=== PATIENT | female | born 1945 | race Asian ===

== ENCOUNTER 2018-09-08 18:14 | Inpatient (IN) | END 2018-09-10 11:46 | disposition home or self-care (01) | DRG 871 ==

== ENCOUNTER 2018-09-24 13:17 | Inpatient (IN) | END 2018-09-26 20:20 | disposition home health service (06) | DRG 180 ==

== ENCOUNTER 2018-10-18 14:59 | Emergency (ER) | END 2018-10-18 17:22 | disposition home or self-care (01) ==

== ENCOUNTER 2019-02-14 16:37 | Inpatient (IN) | payer OTHER ==
[~2019-02-14] VITALS: Ht 147.3 cm; Wt 39.7 kg
[~2019-02-14 16:37] MED LIST: ACET1TAB40 PO; ALBU18HF INHALATION; ALBU2.5V3 NEB; AMLO5TAB4 PO; BENZ-5 PO; CHOL100062 PO; CYAN500T46 PO; FAMO-96 PO; FOLI-49 PO; GUAI120L41 PO; LOSA50TA14 PO; NEBU1KIT3 MC; NYST1000 PO; PRED20TA PO; SIMV20TA PO
[2019-02-14] MEDS ORDERED: morphine 4 MG/ML VIAL IV STA (21:11)
[2019-02-14] MEDS ORDERED: ONDANSETRON 4 MG INJ IV STA (21:11)
[2019-02-14] MEDS ORDERED: SOD CHLORIDE 0.9% 1,000 ML IV STA (21:11)
--- NOTE | 2019-02-14 21:13 | ERD ---
ER Documentation Chief Complaint Chief Complaint pain burning/ frequency on urination x 2 weeks HPI This is a 73-year-old female complaining of 2 days of hematuria with blood clots with dysuria and frequency. Patient has lung cancer and is undergoing radiation therapy. She has occasional bilateral flank pain but no fevers. She is having a hard time getting the urine out at times due to blood clots. No nausea vomiting or diarrhea ROS All systems reviewed and are negative except as per history of present illness. Medications Home Meds Active Scripts Losartan Potassium* (Losartan Potassium*) 50 Mg Tablet, 50 MG PO DAILY, #30 TAB Prov:MADELYN PERES MD 10/18/18 Nystatin (Nystatin) 100,000 Unit/1 Ml Oral.susp, 5 ML PO QID for 7 Days, OZ Swish and swallow Prov:MADELYN PERES MD 10/18/18 Famotidine* (Pepcid*) 20 Mg Tablet, 20 MG PO BID for 10 Days, TAB Prov:MADELYN PERES MD 10/18/18 Acetaminophen with Codeine (Acetaminophen-Cod #3 Tablet) 1 Each Tablet, 1 TAB PO Q6H PRN for PAIN, #12 TAB Prov:MADELYN PERES MD 10/18/18 Albuterol Sulfate* (Ventolin HFA*) 18 Gm Hfa.aer.ad, 2 PUFF INHALATION Q4H, #1 INHALER Prov:ANN JACOBSEN MD 09/26/18 Albuterol Sulfate* (Albuterol Sulfate* Neb) 0.083%-3 Ml Neb, 2.5 MG NEB Q4H PRN for SHORTNESS OF BREATH, #30 VIAL 4 Refills Prov:ANN JACOBSEN MD 09/26/18 Nebulizer (Compact Compressor Nebulizer) 1 Each Each, EACH , #1 Prov:ANN JACOBSEN MD 09/26/18 Guaifenesin/Codeine Phosphate (Codeine-Guaifen 10-100 mg/5 ml) 120 Ml Liquid, 5 ML PO Q4H PRN for COUGH, #1 BOT Prov:ANN JACOBSEN MD 09/26/18 Prednisone* (Prednisone*) 20 Mg Tab, 40 MG PO DAILY, #10 TAB Prov:ANN JACOBSEN MD 09/26/18 Benzonatate* (Benzonatate*) 100 Mg Capsule, 100 MG PO TID for 10 Days, #30 CAP Prov:ANN JACOBSEN MD 09/26/18 Reported Medications Cyanocobalamin* (Vitamin B12*) Unknown Strength Tab, 1 TAB PO DAILY, TAB 09/08/18 Cholecalciferol* (Vitamin D3*) Unknown Strength Tablet, 1 TAB PO DAILY, TAB 09/08/18 Folic Acid* (Folic Acid*) 1 Mg Tablet, 1 MG PO DAILY, TAB 09/08/18 Losartan Potassium* (Losartan Potassium*) 50 Mg Tablet, 50 MG PO DAILY, TAB 09/08/18 Amlodipine Besylate* (Norvasc*) 5 Mg Tablet, 5 MG PO DAILY, TAB 09/08/18 Simvastatin* (Zocor*) 20 Mg Tablet, 20 MG PO QHS, #30 TAB 09/08/18 Allergies Allergies: Coded Allergies: No Known Allergy (Unverified , 02/14/19) PMhx/Soc History of Surgery: Yes (Hemoroidectomy) Anesthesia Reaction: No Hx Neurological Disorder: No Hx Respiratory Disorders: Yes (NSCLC) Hx Cardiac Disorders: Yes (HTN, high cholesterol) Hx Psychiatric Problems: No Hx Miscellaneous Medical Probl: No Hx Alcohol Use: No Hx Substance Use: No Hx Tobacco Use: No Smoking Status: Never smoker FmHx Family History: No coronary disease Physical Exam Vitals Vital Signs Date Temp Pulse Resp B/P (MAP) Pulse Ox O2 O2 Flow FiO2 Time Delivery Rate 02/15/19 122 20 110/78 97 Room Air 02:01 (89) 02/14/19 99.0 142 26 130/80 96 Room Air 23:35 (97) 02/14/19 99.0 119 20 120/76 98 Room Air 20:54 (91) 02/14/19 98.7 110 20 141/74 97 16:46 (96) Physical Exam Const: Well-developed, well-nourished Head: Atraumatic, normocephalic Eyes: Normal Conjunctiva, PERRLA, EOMI, normal sclera, no nystagmus ENT: Normal External Ears, Nose and Mouth, moist mucus membranes. Neck: Full range of motion. No meningismus, no lymphadenopathy. Resp: Clear to auscultation bilaterally, no wheezing, rhonchi, rales Cardio: Regular rate and rhythm, no murmurs, S1 S2 present Abd: Soft, non tender x 4, non distended. Normal bowel sounds, no guard ing or rebound, no pulsitile abdominal masses or bruits Skin: No petechiae or rashes, no ecchymosis , no maculopapular rash Back: No midline or flank tenderness Ext: No cyanosis, or edema, FROM x 4, normal inspection, neurovascularly intact x 4 Neur: Awake and alert, STR 5/5 x 4, sensation intact x 4, no focal findings, cerebellum intact Psych: Normal Mood and Affect Result Diagram: 02/14/19212402/14/192124 Results 24 hrs Laboratory Tests Test 02/14/19 21:11 02/14/19 21:25 Urine Color ANNA MARIE Urine Clarity CLOUDY Urine pH 7.0 Urine Specific Kohler 1.015 Urine Ketones TRACE mg/dL Urine Nitrite NEGATIVE mg/dL Urine Bilirubin NEGATIVE mg/dL Urine Urobilinogen NEGATIVE mg/dL Urine Leukocyte Esterase NEGATIVE Emeli/ul Urine Microscopic RBC > 182 /HPF Urine Microscopic WBC 55 /HPF Urine Hemoglobin 3+ mg/dL Urine Glucose 1+ mg/dL Urine Total Protein 3+ mg/dl White Blood Count 11.3 10^3/ul Red Blood Count 3.58 10^6/ul Hemoglobin 9.7 g/dl Hematocrit 30.7 % Mean Corpuscular Volume 85.8 fl Mean Corpuscular Hemoglobin 27.1 pg Mean Corpuscular Hemoglobin Concent 31.6 g/dl Red Cell Distribution Width 14.4 % Platelet Count 394 10^3/UL Mean Platelet Volume 8.9 fl Immature Granulocytes % 0.400 % Neutrophils % 90.5 % Lymphocytes % 4.3 % Monocytes % 4.3 % Eosinophils % 0.1 % Basophils % 0.4 % Nucleated Red Blood Cells % 0.0 /100WBC Immature Granulocytes # 0.050 10^3/ul Neutrophils # 10.2 10^3/ul Lymphocytes # 0.5 10^3/ul Monocytes # 0.5 10^3/ul Eosinophils # 0.0 10^3/ul Basophils # 0.1 10^3/ul Nucleated Red Blood Cells # 0.0 10^3/ul Prothrombin Time 12.0 Sec Prothrombin Time Ratio 0.9 INR International Normalized Ratio 0.88 Activated Partial Thromboplast Time 31.4 Sec Sodium Level 137 mmol/L Potassium Level 4.3 mmol/L Chloride Level 97 mmol/L Carbon Dioxide Level 29 mmol/L Anion Gap 11 Blood Urea Nitrogen 17 mg/dl Creatinine 1.11 mg/dl Est Glomerular Filtrat Rate mL/min mL/min Glucose Level 117 mg/dl Calcium Level 10.4 mg/dl Total Bilirubin 0.3 mg/dl Direct Bilirubin 0.00 mg/dl Indirect Bilirubin 0.3 mg/dl Aspartate Amino Transf (AST/SGOT) 83 IU/L Alanine Aminotransferase (ALT/SGPT) 12 IU/L Alkaline Phosphatase 69 IU/L Total Protein 8.6 g/dl Albumin 4.5 g/dl Globulin 4.10 g/dl Albumin/Globulin Ratio 1.09 Current Medications Medications Dose Sig/Kourtney Start Time Status Last (Trade) Ordered Route PRN Stop Time Admin Dose Reason Admin Sodium 1,000 ml @ Q1H STAT 02/14/19 DC 02/14/19 Chloride 1,000 mls/hr IV 21:11 21:23 02/14/19 22:10 Morphine 4 mg ONCE STAT 02/14/19 DC 02/14/19 Sulfate IV 21:11 21:22 (morphine) 02/14/19 21:13 Ondansetron 4 mg ONCE STAT 02/14/19 DC 02/14/19 HCl (Zofran IV 21:11 21:21 Inj) 02/14/19 21:13 IV Flush 10 ml STK-MED 02/14/19 DC 02/14/19 (NS 10 ml) ONCE .ROUTE 22:35 22:51 02/14/19 22:36 Sodium 100 ml @ ud STK-MED 02/14/19 DC 02/14/19 Chloride ONCE .ROUTE 22:35 22:51 02/14/19 22:36 Iohexol 150 ml STK-MED 02/14/19 DC 02/14/19 (Omnipaque ONCE .ROUTE 22:35 22:52 300mg/ ml) 02/14/19 22:36 Lorazepam 1 mg ONCE ONCE 02/14/19 DC 02/14/19 (Ativan) IV 23:30 23:25 02/14/19 23:31 Cefepime HCl 50 ml @ ONCE ONCE 02/15/19 DC 02/15/19 100 mls/hr IVPB 01:30 01:59 02/15/19 01:59 Procedures/MDM DIAGNOSTIC IMAGING REPORT Patient: BARBARA NAVARRO : 1945 Age: 73 Sex: F MR #: [id number] [facility] #: [id number] DOS: 02/14/192110 Ordering MD: TIAN WHITTEN DO Location: E/R Room/Bed: PROCEDURE: CT ABDOMEN/PELVIS WITH CONTRAST CLINICAL INDICATION: 73-year-old female with abdominal pain and urinary r etention. TECHNIQUE: The study was performed utilizing a GE [employer] VCT 64-slice CT scanner. Direct axial sections were obtained through the abdomen and pelvis with the use of 90 cc of Omnipaque-300 nonionic intravenous contrast material. Sagittal and coronal reformations were obtained. One or more of the following dose reduction techniques were utilized: automated exposure control, adjustment of the mA and/or kV according to patient's size and/or use of iterative reconstruction technique. DICOM images are available. The images were reviewed on a PACS workstation. CTD/vol = 3.93 mGy; Total Exam DLP = 192.27 mGy.cm. COMPARISON: CTA chest September 24, 2018. FINDINGS: On the first axial section there is a ovoid pulmonary nodule within the right lower lobe on axial image 3-1 measuring approximately 6 mm not completely scanned through this was not visualized on the patient's prior CT of the chest from August 2018. There is no evidence for significant pleural effusion. The liver has a normal size and contour. There is an ovoid cystic focus within the right lobe of the liver extending to the periphery on axial image 3-28 measuring 1.2 x 1.0 x 1.1 cm. There is an additional cystic focus within the lateral segment of the left lobe of the liver on axial image 3-29 measuring approximately 10 x 80 x 10 mm. These were identified previously. No intrahepatic nor extrahepatic biliary ductal dilatation is seen. The gallbladder demonstrates no wall thickening nor pericholecystic fluid. No biliary stones are evident. The pancreas is without areas of abnormal attenuation or contrast enhancement. This spleen is identified and has a normal size without abnormal density or contrast enhancement. The adrenal glands are unremarkable. There has been interval marked increase in size of a large right hepatic mass measuring approximately 9.0 x 6.9 x 5.6 cm which encompasses most of the right kidney with extension medially measuring approximately 6.4 x 3.8 x 4.3 cm surrounding and markedly narrowing the inferior vena cava and right renal vein. There is adjacent retroperitoneal adenopathy with the largest node measuring approximately 5.3 x 2.1 x 2.6 cm on axial image 3-54. There is right-sided hydronephrosis with soft tissue identified within the distal ureter extending to the ureterovesical junction. There is soft tissue mass within the right side of the bladder measuring 1.8 x 1.8 x 3.5 cm. The left kidney is functional without evidence for obstructive uropathy. There is an ovoid hypodense mass within the medial aspect of the lower pole of the left kidney measuring approximately 1.2 x 1.4 x 1.4 cm on axial image 3-62 which has fat components with Hounsfield unit of -40 consistent with a renal angiomyolipoma. The stomach has a J-shaped appearance and is mildly distended. There is retained stool within the ascending, transverse and descending colon without evidence for traction. The periappendiceal region is without inflammatory changes. The uterus is diminutive. The right ovarian vein appears to be engorged. There is prominence of the periuterine venous plexus bilaterally but more pronounced on the right side. There is no significant pelvic free fluid. The aortoiliac vessels are mildly calcified but without aneurysmal dilatation. Mild degenerative changes are seen within the lower lumbar spine. IMPRESSION: 1. Right lower lobe 6 mm pulmonary nodule partially scanned through. 2. Large right renal mass encompassing most of the right kidney which has markedly increased in the interval with medial extension and adjacent retroperitoneal adenopathy encircling and markedly narrowing the adjacent vascular structures (inferior vena cava, renal vein). 3. Right-sided hydronephrosis abnormal soft tissue distal right ureter with extension to a right-sided bladder mass. 4. Left renal angiomyolipoma. 5. Hepatic cysts. 6. Retained stool within the proximal colon without evidence for bowel obstruction. 7. Vascular calcifications. 8. Degenerative changes lower lumbar spine. .Nathanael Barraza MD, Date Time Electronically viewed and signed by .Nathanael Barraza MD, MD on 02/15/2019 01:54 .M/ CC: TIAN WHITTEN DO [id number] The patient had a Ayala catheter placed with bright red blood return. The pat ient then underwent a Mccormick drip which did improve the gross hematuria but not completely resolved. The patient then wanted the Ayala catheter removed. We remove the catheter and she went to urinate and she urinated again gross hematuria with some blood clots, she is not wanting the catheter back and at this time. Patient has extensive involvement of the kidney from the tumor and will need to be admitted for stabilization and urology consult. Paged Dr. Rodriguez Departure Diagnosis: Primary Impression: Gross hematuria Additional Impression: Renal malignant tumor Laterality: right Qualified Codes: C64.1 - Malignant neoplasm of right kidney, except renal pelvis Condition: Stable TIAN WHITTEN DO Feb 14, 2019 21:13
[2019-02-14] MEDS ORDERED: SOD CHLORIDE 0.9% 100 ML ONE (22:35)
[2019-02-14] MEDS ORDERED: IOHEXOL 300MG/ML 150 ML BTL ONE (22:35)
[2019-02-14] MEDS ORDERED: LORAZEPAM 2 MG INJ IV ONE (23:30)
[2019-02-15] MEDS ORDERED: CEFEPIME 1GM/50 ML (PMX) 50 ML IVPB ONE (01:30)
[2019-02-15] MEDS ORDERED: NACL 0.9% 3 ML SYG IV SCH (04:00)
[2019-02-15] MEDS ORDERED: PROVENTIL HFA 6.7GM INHALER INH PRN (04:00)
[2019-02-15] MEDS ORDERED: ACETAMINOPHEN/CODEINE #3 TAB PO PRN (04:00)
[2019-02-15] MEDS ORDERED: ACETAMINOPHEN 325 MG TAB PO PRN ×2 (04:00)
[2019-02-15] MEDS ORDERED: DOCUSATE SODIUM 100 MG CAP PO PRN (04:00)
[2019-02-15] MEDS ORDERED: ONDANSETRON 4 MG TAB PO PRN (04:00)
[2019-02-15] MEDS ORDERED: ALBUTEROL HFA 8 GM INHALER INH PRN (04:00)
[2019-02-15] MEDS ORDERED: ONDANSETRON 4 MG INJ IV PRN (04:00)
[2019-02-15] MEDS ORDERED: ALBUTEROL 0.083% (NEB) 2.5 MG/3 ML AMP NEB PRN (04:00)
[2019-02-15] MEDS: LOSARTAN 50 MG TAB PO SCH (08:11)
[2019-02-15] MEDS: AMLODIPINE 5 MG TAB PO SCH (08:12)
[2019-02-15] MEDS ORDERED: FAMOTIDINE 20 MG TAB PO SCH (09:00)
[2019-02-15] MEDS: FAMOTIDINE 20 MG TAB PO SCH (10:05)
[2019-02-15] MEDS ORDERED: HYDROCODONE/APAP (5/325) TAB PO PRN (11:00)
[2019-02-15] MEDS: SOD CHLORIDE 0.9% 1,000 ML IV SCH ×2 (11:07→19:33)
[2019-02-15] MEDS: BENZONATATE 100 MG CAP PO SCH ×3 (11:07→21:21)
[2019-02-15] MEDS: NYSTATIN SUSP 5 ML CUP PO SCH ×4 (11:07→21:21)
[2019-02-15] MEDS: FOLIC ACID 1 MG TAB PO SCH (11:08)
[2019-02-15 12:22] VITALS: PULSE 96
[2019-02-15 12:24] VITALS: BP 101/65; PULSE 93; RESP 18
[2019-02-15 12:44] VITALS: Ht 147.3 cm; Wt 39.7 kg
--- NOTE | 2019-02-15 14:46 | CONS ---
Assessment/Plan Assessment/Plan Hospital Course (Demo Recall) 73-year-old female known to have a history of lung cancer for the past 4 years and has been undergoing treatment with radiation and chemotherapy presented to [facility] with a 2-day history of gross hematuria She underwent a CT scan of the abdomen and pelvis and that was showed: 1. Right lower lobe 6 mm pulmonary nodule partially scanned through. 2. Large right renal mass encompassing most of the right kidney which has markedly increased in the interval with medial extension and adjacent retroperitoneal adenopathy encircling and markedly narrowing the adjacent vascular structures (inferior vena cava, renal vein). 3. Right-sided hydronephrosis abnormal soft tissue distal right ureter with extension to a right-sided bladder mass. 4. Left renal angiomyolipoma. 5. Hepatic cysts. 6. Retained stool within the proximal colon without evidence for bowel o bstruction. 7. Vascular calcifications. 8. Degenerative changes lower lumbar spine. Therefore a urological consultation was requested I saw the patient and her son and [id number] were at her bedside. The patient had recent PET scan and that showed the tumor in the right kidney. Patient has lost a lot of weight and is very cachectic. The family is unclear whether she did have a biopsy of her lung tumor. And whether the tumor was a primary lung tumor or metastatic tumor. Impression: Right renal tumor that is involving all of the kidney and bleeding into the renal pelvis and the blood goes down the ureter to the bladder. Whether this tumor is a metastatic tumor from the lung cancer or is at another primary or is it the primary and the lung tumor is metastatic from it is unknown . The tumor does press on the renal vein and the vena cava. If any surgery is to be considered she will need referral to a tertiary hospital. However I would recommend that the oncologist and the radiation therapist who is taking care of her be consulted. We shall monitor her H&H and transfuse her as needed. I will discussed with the radiologist if embolizing the kidney could offer her any hel p. Consultation Date/Type/Reason Admit Date/Time Feb 15, 2019 at 03:39 Date of Consultation: Feb 15, 2019 Type of Consult Urology Reason for Consultation Gross hematuria and right renal tumor. Requesting Provider: KEVEN SAHA M.D. Date/Time of Note DATE: 02/15/19 TIME: 14:23 Hx of Present Illness 73-year-old female known to have a history of lung cancer for the past 4 years and has been undergoing treatment with radiation and chemotherapy presented to [facility] with a 2-day history of gross hematuria She underwent a CT scan of the abdomen and pelvis and that was showed: 1. Right lower lobe 6 mm pulmonary nodule partially scanned through. 2. Large right renal mass encompassing most of the right kidney which has markedly increased in the interval with medial extension and adjacent retrop eritoneal adenopathy encircling and markedly narrowing the adjacent vascular structures (inferior vena cava, renal vein). 3. Right-sided hydronephrosis abnormal soft tissue distal right ureter with e xtension to a right-sided bladder mass. 4. Left renal angiomyolipoma. 5. Hepatic cysts. 6. Retained stool within the proximal colon without evidence for bowel obstruction. 7. Vascular calcifications. 8. Degenerative changes lower lumbar spine. Therefore a urological consultation was requested I saw the patient and her son and [id number] were at her bedside. The patient had recent PET scan and that showed the tumor in the right kidney. Patient has lost a lot of weight and is very cachectic. The family is unclear whether she did have a biopsy of her lung tumor. And whether the tumor was a primary lung tumor or metastatic tumor. Constitutional: other (Generalized weakness) Eyes: no complaints ENT: no complaints Respiratory: No shortness of breath Cardiovascular: no complaints; No chest pain Gastrointestinal: constipation Genitourinary: hematuria Musculoskeletal: no complaints Skin: no complaints Neurologic: no complaints Endocrine: no complaints Lymphatic: no complaints Psychological: no complaints Immunologic: no complaints Past Medical History Medical History: cancer (Lung), hypertension Home Meds Active Scripts Losartan Potassium* (Losartan Potassium*) 50 Mg Tablet, 50 MG PO DAILY, #30 TAB Prov:MADELYN PERES MD 10/18/18 Nystatin (Nystatin) 100,000 Unit/1 Ml Oral.susp, 5 ML PO QID for 7 Days, OZ Swish and swallow Prov:MADELYN PERES MD 10/18/18 Famotidine* (Pepcid*) 20 Mg Tablet, 20 MG PO BID for 10 Days, TAB Prov:MADELYN PERES MD 10/18/18 Acetaminophen with Codeine (Acetaminophen-Cod #3 Tablet) 1 Each Tablet, 1 TAB PO Q6H PRN for PAIN, #12 TAB Prov:MADELYN PERES MD 10/18/18 Albuterol Sulfate* (Ventolin HFA*) 18 Gm Hfa.aer.ad, 2 PUFF INHALATION Q4H, #1 INHALER Prov:ANN JACOBSEN MD 09/26/18 Albuterol Sulfate* (Albuterol Sulfate* Neb) 0.083%-3 Ml Neb, 2.5 MG NEB Q4H PRN for SHORTNESS OF BREATH, #30 VIAL 4 Refills Prov:ANN JACOBSEN MD 09/26/18 Nebulizer (Compact Compressor Nebulizer) 1 Each Each, EACH MC, #1 Prov:ANN JACOBSEN MD 09/26/18 Guaifenesin/Codeine Phosphate (Codeine-Guaifen 10-100 mg/5 ml) 120 Ml Liquid, 5 ML PO Q4H PRN for COUGH, #1 BOT Prov:ANN JACOBSEN MD 09/26/18 Prednisone* (Prednisone*) 20 Mg Tab, 40 MG PO DAILY, #10 TAB Prov:ANN JACOBSEN MD 09/26/18 Benzonatate* (Benzonatate*) 100 Mg Capsule, 100 MG PO TID for 10 Days, #30 CAP Prov:ANN JACOBSEN MD 09/26/18 Reported Medications Cyanocobalamin* (Vitamin B12*) Unknown Strength Tab, 1 TAB PO DAILY, TAB 09/08/18 Cholecalciferol* (Vitamin D3*) Unknown Strength Tablet, 1 TAB PO DAILY, TAB 09/08/18 Folic Acid* (Folic Acid*) 1 Mg Tablet, 1 MG PO DAILY, TAB 09/08/18 Losartan Potassium* (Losartan Potassium*) 50 Mg Tablet, 50 MG PO DAILY, TAB 09/08/18 Amlodipine Besylate* (Norvasc*) 5 Mg Tablet, 5 MG PO DAILY, TAB 09/08/18 Simvastatin* (Zocor*) 20 Mg Tablet, 20 MG PO QHS, #30 TAB 09/08/18 Medications Current Medications Ondansetron HCl (Zofran Inj) 4 mg BRIDGE ORDER PRN IV NAUSEA/VOMITING; Start 02/15/19 at 04:00; Stop 02/16/19 at 03:59 Acetaminophen (Tylenol Tab) 650 mg ER BRIDGE PRN PO .MILD PAIN 1-3 OR TEMP; Start 02/15/19 at 04:00; Stop 02/16/19 at 03:59 Albuterol (Proventil 0.083% (Neb)) 2.5 mg Q4H PRN NEB SHORTNESS OF BREATH; Start 02/15/19 at 04:00 Amlodipine Besylate (Norvasc) 5 mg DAILY PO ; Start 02/15/19 at 09:00 Benzonatate (Tessalon) 100 mg TID PO Last administered on 02/15/19at 11:07; Admin Dose 100 MG; Start 02/15/19 at 09:00 Folic Acid (Folic Acid) 1 mg DAILY PO Last administered on 02/15/19 11:08; Admin Dose 1 MG; Start 02/15/19 at 09:00 Losartan Potassium (Cozaar) 50 mg DAILY PO ; Start 02/15/19 at 09:00 Nystatin (Nystatin Susp) 5 ml QID PO Last administered on 02/15/19 11:07; Admin Dose 5 ML; Start 02/15/19 at 09:00 IV Flush (NS 3 ml) 3 ml PER PROTOCOL IV ; Start 02/15/19 at 04:00 Ondansetron HCl (Zofran Tab) 4 mg Q6H PRN PO NAUSEA/VOMITING; Start 02/15/19 at 04:00 Acetaminophen (Tylenol Tab) 650 mg Q6H PRN PO .PAIN 1-3 OR TEMP; Start 02/15/19 at 04:00 Docusate Sodium (Colace) 100 mg Q12H PRN PO .CONSTIPATION; Start 02/15/19 at 04:00 Albuterol (Ventolin Hfa) 2 puff Q4H PRN INH Dyspnea; Start 02/15/19 at 04:00 Acetaminophen/ Hydrocodone Bitart ([place] (5/325)) 1 tab Q6H PRN PO MODERATE PAIN LEVEL 4-6; Start 02/15/19 at 11:00 Famotidine (Pepcid) 20 mg DAILY PO Last administered on 02/15/19at 10:05; Admin Dose 20 MG; Start 02/15/19 at 09:00 Sodium Chloride 1,000 ml @ 125 mls/hr Q8H IV Last administered on 02/15/19 11:07; Admin Dose 125 MLS/HR; Start 02/15/19 at 09:40 Allergies: Coded Allergies: No Known Allergy (Unverified , 02/14/19) Past Surgical History Past Surgical Hx: no surgical history Social History Alcohol Use: none Smoking Status: Never smoker Drug Use: none Other Social History She is a 3, para 3, 3 normal deliveries Exam/Review of Systems Exam Vitals Vital Signs Date Temp Pulse Resp B/P (MAP) Pulse Ox O2 O2 Flow FiO2 Time Delivery Rate 02/15/19 97.5 93 18 101/65 99 Room Air 12:24 (77) Intake and Output 02/14/19 02/14/19 02/15/19 1515:00 23:00 07:00 IntakeIntake Total 1000 ml 50 ml BalanceBalance 1000 ml 50 ml Constitutional: alert, frail Psych: no complaints Head: normocephalic Eyes: nl conjunctiva ENMT: nl external ears & nose Neck: supple Respiratory: normal air movement; No wheezing Cardiovascular: No jugular venous distention (JVD) Gastrointestinal: soft, other (No mass palpable and no tenderness) Genitourinary - Female: other (She did have a Ayala catheter which was removed because it got clogged from the blood clots. She has voided after that and the urine is bloody) Musculoskeletal: nl extremities to inspection Extremities: No calf tenderness Neurological: nl mental status Skin: nl turgor Results Result Diagram: 02/14/19212402/14/192124 Results 24hrs Laboratory Tests Test 02/14/19 21:11 02/14/19 21:25 Urine Color ANNA MARIE Urine Clarity CLOUDY A Urine pH 7.0 Urine Specific [place] 1.015 Urine Ketones TRACE A Urine Nitrite NEGATIVE Urine Bilirubin NEGATIVE Urine Urobilinogen NEGATIVE Urine Leukocyte Esterase NEGATIVE Urine Microscopic RBC > 182 H Urine Microscopic WBC 55 H Urine Hemoglobin 3+ H Urine Glucose 1+ H Urine Total Protein 3+ H White Blood Count 11.3 #H Red Blood Count 3.58 L Hemoglobin 9.7 L Hematocrit 30.7 L Mean Corpuscular Volume 85.8 Mean Corpuscular Hemoglobin 27.1 L Mean Corpuscular Hemoglobin Concent 31.6 L Red Cell Distribution Width 14.4 Platelet Count 394 # Mean Platelet Volume 8.9 Immature Granulocytes % 0.400 Neutrophils % 90.5 H Lymphocytes % 4.3 L Monocytes % 4.3 Eosinophils % 0.1 Basophils % 0.4 Nucleated Red Blood Cells % 0.0 Immature Granulocytes # 0.050 H Neutrophils # 10.2 H Lymphocytes # 0.5 L Monocytes # 0.5 Eosinophils # 0.0 Basophils # 0.1 Nucleated Red Blood Cells # 0.0 Prothrombin Time 12.0 Prothrombin Time Ratio 0.9 INR International Normalized Ratio 0.88 Activated Partial Thromboplast Time 31.4 Sodium Level 137 Potassium Level 4.3 Chloride Level 97 Carbon Dioxide Level 29 Anion Gap 11 Blood Urea Nitrogen 17 Creatinine 1.11 H Est Glomerular Filtrat Rate mL/min Glucose Level 117 Calcium Level 10.4 H Total Bilirubin 0.3 Direct Bilirubin 0.00 Indirect Bilirubin 0.3 Aspartate Amino Transf (AST/SGOT) 83 H Alanine Aminotransferase (ALT/SGPT) 12 L Alkaline Phosphatase 69 Total Protein 8.6 H Albumin 4.5 Globulin 4.10 H Albumin/Globulin Ratio 1.[address] scan of the abdomen and pelvis: 1. Right lower lobe 6 mm pulmonary nodule partially scanned through. 2. Large right renal mass encompassing most of the right kidney which has markedly increased in the interval with medial extension and adjacent retroperitoneal adenopathy encircling and markedly narrowing the adjacent vascular structures (inferior vena cava, renal vein). 3. Right-sided hydronephrosis abnormal soft tissue distal right ureter with extension to a right-sided bladder mass. 4. Left renal angiomyolipoma. 5. Hepatic cysts. 6. Retained stool within the proximal colon without evidence for bowel obstruction. 7. Vascular calcifications. 8. Degenerative changes lower lumbar spine. Medications Medication Current Medications Ondansetron HCl (Zofran Inj) 4 mg BRIDGE ORDER PRN IV NAUSEA/VOMITING; Start 02/15/19 at 04:00; Stop 02/16/19 at 03:59 Acetaminophen (Tylenol Tab) 650 mg ER BRIDGE PRN PO .MILD PAIN 1-3 OR TEMP; Start 02/15/19 at 04:00; Stop 02/16/19 at 03:59 Albuterol (Proventil 0.083% (Neb)) 2.5 mg Q4H PRN NEB SHORTNESS OF BREATH; Start 02/15/19 at 04:00 Amlodipine Besylate (Norvasc) 5 mg DAILY PO ; Start 02/15/19 at 09:00 Benzonatate (Tessalon) 100 mg TID PO Last administered on 02/15/19at 11:07; Admi n Dose 100 MG; Start 02/15/19 at 09:00 Folic Acid (Folic Acid) 1 mg DAILY PO Last administered on 02/15/19at 11:08; Admin Dose 1 MG; Start 02/15/19 at 09:00 Losartan Potassium (Cozaar) 50 mg DAILY PO ; Start 02/15/19 at 09:00 Nystatin (Nystatin Susp) 5 ml QID PO Last administered on 02/15/19at 11:07; Admin Dose 5 ML; Start 02/15/19 at 09:00 IV Flush (NS 3 ml) 3 ml PER PROTOCOL IV ; Start 02/15/19 at 04:00 Ondansetron HCl (Zofran Tab) 4 mg Q6H PRN PO NAUSEA/VOMITING; Start 02/15/19 at 04:00 Acetaminophen (Tylenol Tab) 650 mg Q6H PRN PO .PAIN 1-3 OR TEMP; Start 02/15/19 at 04:00 Docusate Sodium (Colace) 100 mg Q12H PRN PO .CONSTIPATION; Start 02/15/19 at 04:00 Albuterol (Ventolin Hfa) 2 puff Q4H PRN INH Dyspnea; Start 02/15/19 at 04:00 Acetaminophen/ Hydrocodone Bitart ([place] (5/325)) 1 tab Q6H PRN PO MODERATE PAIN LEVEL 4-6; Start 02/15/19 at 11:00 Famotidine (Pepcid) 20 mg DAILY PO Last administered on 02/15/19at 10:05; Admin Dose 20 MG; Start 02/15/19 at 09:00 Sodium Chloride 1,000 ml @ 125 mls/hr Q8H IV Last administered on 02/15/19at 11:07; Admin Dose 125 MLS/HR; Start 02/15/19 at 09:40 JANELLE MAY MD Feb 15, 2019 14:36
[2019-02-15 15:40] VITALS: BP 107/60; PULSE 99; RESP 18
[2019-02-15 16:07] VITALS: PULSE 92
--- NOTE | 2019-02-15 17:01 | HP ---
Date/Time of Note Date/Time of Note DATE: 02/15/19 TIME: 16:53 Assessment/Plan VTE Prophylaxis SCD applied (from Nsg): Yes Pharmacological prophylaxis: NA/contraindicated Pharm contraindication: bleeding Lines/Catheters IV Catheter Type (from Nrsg): Peripheral IV Urinary Cath still in place: No Assessment/Plan Hospital Course CT scan of the abdomen and pelvis: 1. Right lower lobe 6 mm pulmonary nodule partially scanned through. 2. Large right renal mass encompassing most of the right kidney which has markedly increased in the interval with medial extension and adjacent retroperitoneal adenopathy encircling and markedly narrowing the adjacent vascular structures (inferior vena cava, renal vein). 3. Right-sided hydronephrosis abnormal soft tissue distal right ureter with extension to a right-sided bladder mass. 4. Left renal angiomyolipoma. 5. Hepatic cysts. 6. Retained stool within the proximal colon without evidence for bowel obstruction. 7. Vascular calcifications. 8. Degenerative changes lower lumbar spine. Assessment/Plan 73yo woman with biopsy-proven diagnosis of non-small cell lung cancer and previous history of alveolar hemorrhage. Now with two days of gross hematuria. CT of the abdomen indicates virtual replacement of the right kidney with tumor. Discussed with Dr. Carlos Portillo (Urology), who speculated about the possibility of this being a renal cell carcinoma that had previously metastasized to the lung versus a second malignancy. She has right hydronephrosis on CT scan, suggesting ureteric obstruction. Creatinine is elevated at 1.11. However BP was low (SBP 85 this morning). No fever, but urine showed heavy E.coli. * I consulted Dr. Portillo this morning. His feeling is that surgical resection would be highly complicated and would need to be performed if indicated in a tertiary care center. * I spoke tonight with Dr. Awa Ashton for Oncology, after being in touch with Dr. Baba Ishaan Salas (the patient's oncologist). She will see Tiffany tomorrow morning in consultation. * I left a phone message for Dr. Aristides Allen, one of our internists, who is the patient's cousin * Hold anticoagulation in light of the active bleeding * Will start her on Zosyn in light of heavy E.coli in her urine and symptomatic urethritis * SCDs for DVT prevention * Famotidine 20mg PO BID for GI protection * Patient is full-code * Disposition: disease staging anticipated by oncologists. Have not extensively discussed options with the family, but prognosis appears grim. Aleida Garibay MD PhD [facility] Internal Medicine [phone] Result Diagram: 02/14/19212402/14/192124 Results 24hrs Laboratory Tests Test 02/14/19 21:11 02/14/19 21:25 Urine Color ANNA MARIE Urine Clarity CLOUDY A Urine pH 7.0 Urine Specific [place] 1.015 Urine Ketones TRACE A Urine Nitrite NEGATIVE Urine Bilirubin NEGATIVE Urine Urobilinogen NEGATIVE Urine Leukocyte Esterase NEGATIVE Urine Microscopic RBC > 182 H Urine Microscopic WBC 55 H Urine Hemoglobin 3+ H Urine Glucose 1+ H Urine Total Protein 3+ H White Blood Count 11.3 #H Red Blood Count 3.58 L Hemoglobin 9.7 L Hematocrit 30.7 L Mean Corpuscular Volume 85.8 Mean Corpuscular Hemoglobin 27.1 L Mean Corpuscular Hemoglobin Concent 31.6 L Red Cell Distribution Width 14.4 Platelet Count 394 # Mean Platelet Volume 8.9 Immature Granulocytes % 0.400 Neutrophils % 90.5 H Lymphocytes % 4.3 L Monocytes % 4.3 Eosinophils % 0.1 Basophils % 0.4 Nucleated Red Blood Cells % 0.0 Immature Granulocytes # 0.050 H Neutrophils # 10.2 H Lymphocytes # 0.5 L Monocytes # 0.5 Eosinophils # 0.0 Basophils # 0.1 Nucleated Red Blood Cells # 0.0 Prothrombin Time 12.0 Prothrombin Time Ratio 0.9 INR International Normalized Ratio 0.88 Activated Partial Thromboplast Time 31.4 Sodium Level 137 Potassium Level 4.3 Chloride Level 97 Carbon Dioxide Level 29 Anion Gap 11 Blood Urea Nitrogen 17 Creatinine 1.11 H Est Glomerular Filtrat Rate mL/min Glucose Level 117 Calcium Level 10.4 H Total Bilirubin 0.3 Direct Bilirubin 0.00 Indirect Bilirubin 0.3 Aspartate Amino Transf (AST/SGOT) 83 H Alanine Aminotransferase (ALT/SGPT) 12 L Alkaline Phosphatase 69 Total Protein 8.6 H Albumin 4.5 Globulin 4.10 H Albumin/Globulin Ratio 1.09 HPI/ROS Admit Date/Time Admit Date/Time Feb 15, 2019 at 03:39 Hx of Present Illness [facility] CC: Blood in the toilet HPI: Ms. Allen is a 73-year-old woman with a 4-1/2-year history of stage IV biopsy-proven non-small cell lung cancer who presented late last night to the [facility] ER with two days of bloody urine. She had no frequency, dysuria or urethritis symptoms, and no lightheadedness, abdominal or back pain. She is followed by Dr. Baba Ishaan Salas and has undergone chemotherapy and radiation previously (10 sessions, concluded in Sep 2018). She was admitted most recently in June 2018 for dyspnea and hemoptysis, attributed to the cancer. A previous admission diagnosed post-obstructive pneumonia. She has been followed by Dr. Jace Mcknight (pulmonary). ROS No nausea, but she had an episode of emesis after the CT scan yesterday that she attributed to chill in the Radiology Department. She has had mild headache that she related to straining at stool due to constipation. No chest pain, dyspnea, or cough. Full 14 point ROS otherwise negative. PMH/Family/Social Past Medical History Medical History: cancer (Lung), hypertension, other (hemorrhoids) Medications Current Medications Ondansetron HCl (Zofran Inj) 4 mg BRIDGE ORDER PRN IV NAUSEA/VOMITING; Start 02/15/19 at 04:00; Stop 02/16/19 at 03:59 Acetaminophen (Tylenol Tab) 650 mg ER BRIDGE PRN PO .MILD PAIN 1-3 OR TEMP; Start 02/15/19 at 04:00; Stop 02/16/19 at 03:59 Albuterol (Proventil 0.083% (Neb)) 2.5 mg Q4H PRN NEB SHORTNESS OF BREATH; Start 02/15/19 at 04:00 Amlodipine Besylate (Norvasc) 5 mg DAILY PO ; Start 02/15/19 at 09:00 Benzonatate (Tessalon) 100 mg TID PO Last administered on 02/15/19at 11:07; Admin Dose 100 MG; Start 02/15/19 at 09:00 Folic Acid (Folic Acid) 1 mg DAILY PO Last administered on 02/15/19at 11:08; Admin Dose 1 MG; Start 02/15/19 at 09:00 Losartan Potassium (Cozaar) 50 mg DAILY PO ; Start 02/15/19 at 09:00 Nystatin (Nystatin Susp) 5 ml QID PO Last administered on 02/15/19at 11:07; Admin Dose 5 ML; Start 02/15/19 at 09:00 IV Flush (NS 3 ml) 3 ml PER PROTOCOL IV ; Start 02/15/19 at 04:00 Ondansetron HCl (Zofran Tab) 4 mg Q6H PRN PO NAUSEA/VOMITING; Start 02/15/19 at 04:00 Acetaminophen (Tylenol Tab) 650 mg Q6H PRN PO .PAIN 1-3 OR TEMP; Start 02/15/19 at 04:00 Docusate Sodium (Colace) 100 mg Q12H PRN PO .CONSTIPATION; Start 02/15/19 at 0 4:00 Albuterol (Ventolin Hfa) 2 puff Q4H PRN INH Dyspnea; Start 02/15/19 at 04:00 Acetaminophen/ Hydrocodone Bitart ([place] (5/325)) 1 tab Q6H PRN PO MODERATE PAIN LEVEL 4-6; Start 02/15/19 at 11:00 Famotidine (Pepcid) 20 mg DAILY PO Last administered on 02/15/19at 10:05; Admin Dose 20 MG; Start 02/15/19 at 09:00 Sodium Chloride 1,000 ml @ 125 mls/hr Q8H IV Last administered on 02/15/19at 11:07; Admin Dose 125 MLS/HR; Start 02/15/19 at 09:40 Coded Allergies: No Known Allergy (Unverified , 02/14/19) Past Surgical History Past Surgical Hx: no surgical history Family History Significant Family History: heart disease, hypertension Social History She has three sons. 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 No tobacco or alcohol use history. She lives currently with her youngest son. Alcohol Use: none Smoking Status: Never smoker Drug Use: none Exam/Review of Systems Vital Signs Vitals Vital Signs Date Temp Pulse Resp B/P (MAP) Pulse Ox O2 O2 Flow FiO2 Time Delivery Rate 02/15/19 92 16:07 02/15/19 97.5 18 107/60 99 Room Air 15:40 (76) Intake and Output 02/14/19 02/14/19 02/15/19 1515:00 23:00 07:00 IntakeIntake Total 1000 ml 50 ml BalanceBalance 1000 ml 50 ml Exam Exam On physical exam, she was slight in appearance, but friendly and with good eye contact. HEENT: She had mild asymmetry of the face, with an angled plane of facial expression. But the pupils were equal, round and reactive to light. Her conjunctivae were non-inflamed. The oral mucosa was moist, intact and non- inflamed. She had no parotid or submandibular salivary gland swelling or tenderness, and no cervical adenopathy. The thyroid contour was normal with no nodularity. CVS: She had a regular rhythm and normal rate. No murmur or rub. She had symmetric radial and ulnar pulses, with normal capillary refill and no periungual erythema. Chest: The lungs were clear to auscultation bilaterally. No pulmonary rub. She had no tenderness of the vertebral bodies, paravertebral musculature, or sacroi liac joint region. Her sternoclavicular and acromioclavicular joints were non- tender with full range of motion. There was no axillary adenopathy, and no madiha scoliosis. Abd: Soft, non-tender, bowel sounds normal. No hepatosplenomegaly. But she had a palpable mass in the posterior right abdomen that was non-tender. Musculoskeletal: There was full painless range of motion in all joints of the upper and lower extremities. She had no claudine-articular tenderness around the hips, including the iliotibial bands, trochanteric bursa, the tensor fascia luiz and the gluteus medius area. There were no abnormalities in the small joints of the hands and feet. Her neck demonstrated full painless motion in all three planes. Straight-leg raising was normal. Neuro: Alert and oriented. Cranial nerves 2-12 intact. Motor 5/5 in all muscle groups, including neck flexors. Sensation intact to light touch. Toes downgoing. Patellar deep tendon reflexes trace and symmetric bilaterally. Skin: No rash identified. KEVEN GARIBAY M.D. Feb 15, 2019 17:01
[2019-02-15 19:54] VITALS: BP 99/54; PULSE 107; RESP 18
[2019-02-15 20:00] VITALS: PULSE 105
[2019-02-15] MEDS ORDERED: CEFTRIAXONE 1 GM/50 ML (PMX) 50 ML IVPB SCH (23:30)
[2019-02-16] VITALS: BP 112/70; PULSE 101; PULSE 103; RESP 18
[2019-02-16] MEDS: SOD CHLORIDE 0.9% 1,000 ML IV SCH ×2 (02:22→08:42)
[2019-02-16 04:00] VITALS: PULSE 83
--- NOTE | 2019-02-16 07:45 | CONS ---
Assessment/Plan Assessment/Plan Assessment/Plan (Daily) Metastatic disease to the right kidney is likely. Other possibility includes a primary renal cell carcinome of the right kideny. 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 She has basically deferred chemotherapy . which is known to be the first line of therapy of small cell lung cancer. She did receive Radiation therapy to the right upper lobe of the lung, last September, with a partial response. Her disease is extensive, for which systemic treatment is indicated, but unfortunately, the patient refused the systemic therapy. Recommendations Palliative care. 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 At that time she was presenting cough, hemoptisis, shortness of breath and dyspnea on mild exertion. She deferred chemotherapy and was started in oral Erlotinib. According to the patient, she did not tolerate this medication because of nausea and vomits. She was then changed to Afinitor and the medication was again poorly tolerated due to nausea and vomiting. Subsequently in September 2018, she received radiation therapy to the lungs. obtaining a partial response with significant regression or decrease in size of the lung mass. According to the patient, during the last couple of weeks she noticed a right side abdominal mass. She also developed intermittent episodes of hematuria with abundant clots. PET CT scan (02/05/19) identified a 7.5 cm right renal mass. (SUV 12.3) as we;; as extensive hypermetabolic bulky lymphadenopathies along the tight margins of the right kidney extending into the retroperitoneum. In this PET CT scan progressive disease of the lung cancer was also documented with multiple new and enlarged hypermetabolic pulmonary nodules. The patient denies any pain at this time. Her ECOG performance status is 1. Past Medical History Medical History: cancer (Lung), hypertension, other (hemorrhoids) Home Meds Active Scripts Losartan Potassium* (Losartan Potassium*) 50 Mg Tablet, 50 MG PO DAILY, #30 TAB Prov:MADELYN PERES MD 10/18/18 Nystatin (Nystatin) 100,000 Unit/1 Ml Oral.susp, 5 ML PO QID for 7 Days, OZ Swish and swallow Prov:MADELYN PERES MD 10/18/18 Famotidine* (Pepcid*) 20 Mg Tablet, 20 MG PO BID for 10 Days, TAB Prov:MADELYN PERES MD 10/18/18 Acetaminophen with Codeine (Acetaminophen-Cod #3 Tablet) 1 Each Tablet, 1 TAB PO Q6H PRN for PAIN, #12 TAB Prov:MADELYN PERES MD 10/18/18 Albuterol Sulfate* (Ventolin HFA*) 18 Gm Hfa.aer.ad, 2 PUFF INHALATION Q4H, #1 INHALER Prov:ANN JACOBSEN MD 09/26/18 Albuterol Sulfate* (Albuterol Sulfate* Neb) 0.083%-3 Ml Neb, 2.5 MG NEB Q4H PRN for SHORTNESS OF BREATH, #30 VIAL 4 Refills Prov:ANN JACOBSEN MD 09/26/18 Nebulizer (Compact Compressor Nebulizer) 1 Each Each, EACH MC, #1 Prov:ANN JACOBSEN MD 09/26/18 Guaifenesin/Codeine Phosphate (Codeine-Guaifen 10-100 mg/5 ml) 120 Ml Liquid, 5 ML PO Q4H PRN for COUGH, #1 BOT Prov:ANN JACOBSEN MD 09/26/18 Prednisone* (Prednisone*) 20 Mg Tab, 40 MG PO DAILY, #10 TAB Prov:ANN JACOBSEN MD 09/26/18 Benzonatate* (Benzonatate*) 100 Mg Capsule, 100 MG PO TID for 10 Days, #30 CAP Prov:ANN JACOBSEN MD 09/26/18 Reported Medications Cyanocobalamin* (Vitamin B12*) Unknown Strength Tab, 1 TAB PO DAILY, TAB 09/08/18 Cholecalciferol* (Vitamin D3*) Unknown Strength Tablet, 1 TAB PO DAILY, TAB 09/08/18 Folic Acid* (Folic Acid*) 1 Mg Tablet, 1 MG PO DAILY, TAB 09/08/18 Losartan Potassium* (Losartan Potassium*) 50 Mg Tablet, 50 MG PO DAILY, TAB 09/08/18 Amlodipine Besylate* (Norvasc*) 5 Mg Tablet, 5 MG PO DAILY, TAB 09/08/18 Simvastatin* (Zocor*) 20 Mg Tablet, 20 MG PO QHS, #30 TAB 09/08/18 Medications Current Medications Albuterol (Proventil 0.083% (Neb)) 2.5 mg Q4H PRN NEB SHORTNESS OF BREATH; Start 02/15/19 at 04:00 Amlodipine Besylate (Norvasc) 5 mg DAILY PO ; Start 02/15/19 at 09:00 Benzonatate (Tessalon) 100 mg TID PO Last administered on 02/15/19at 21:21; Admin Dose 100 MG; Start 02/15/19 at 09:00 Folic Acid (Folic Acid) 1 mg DAILY PO Last administered on 02/15/19at 11:08; Admin Dose 1 MG; Start 02/15/19 at 09:00 Losartan Potassium (Cozaar) 50 mg DAILY PO ; Start 02/15/19 at 09:00 Nystatin (Nystatin Susp) 5 ml QID PO Last administered on 02/15/19at 21:21; Admin Dose 5 ML; Start 02/15/19 at 09:00 IV Flush (NS 3 ml) 3 ml PER PROTOCOL IV ; Start 02/15/19 at 04:00 Ondansetron HCl (Zofran Tab) 4 mg Q6H PRN PO NAUSEA/VOMITING; Start 02/15/19 at 04:00 Acetaminophen (Tylenol Tab) 650 mg Q6H PRN PO .PAIN 1-3 OR TEMP; Start 02/15/19 at 04:00 Docusate Sodium (Colace) 100 mg Q12H PRN PO .CONSTIPATION Last administered on 02/15/19at 17:11; Admin Dose 100 MG; Start 02/15/19 at 04:00 Albuterol (Ventolin Hfa) 2 puff Q4H PRN INH Dyspnea; Start 02/15/19 at 04:00 Acetaminophen/ Hydrocodone Bitart ([place] (5/325)) 1 tab Q6H PRN PO MODERATE PAIN LEVEL 4-6; Start 02/15/19 at 11:00 Famotidine (Pepcid) 20 mg DAILY PO Last administered on 02/15/19at 10:05; Admin Dose 20 MG; Start 02/15/19 at 09:00 Sodium Chloride 1,000 ml @ 125 mls/hr Q8H IV Last administered on 02/16/19at 02:22; Admin Dose 125 MLS/HR; Start 02/15/19 at 09:40 Ceftriaxone Sodium 50 ml @ 100 mls/hr Q24H IVPB Last administered on 02/15/19at 23:30; Admin Dose 100 MLS/HR; Start 02/15/19 at 23:30 Allergies: Coded Allergies: No Known Allergy (Unverified , 02/14/19) Past Surgical History Past Surgical Hx: no surgical history Social History Alcohol Use: none Smoking Status: Never smoker Drug Use: none Exam/Review of Systems Exam Vitals Vital Signs Date Temp Pulse Resp B/P (MAP) Pulse Ox O2 O2 Flow FiO2 Time Delivery Rate 02/16/19 83 04:00 02/16/19 97.3 18 112/70 96 00:00 (84) 02/15/19 Room Air 15:40 Intake and Output 02/15/19 02/15/19 02/16/19 1515:00 23:00 07:00 IntakeIntake Total 480 ml 550 ml BalanceBalance 480 ml 550 ml Constitutional: alert, oriented, well developed, frail Eyes: nl conjunctiva ENMT: mucosa pink and moist Neck: supple Respiratory: clear to auscultation Cardiovascular: regular rate and rhythm Gastrointestinal: soft, other (7 cm maass palpable in the right upper quadrant .) Genitourinary - Female: other (not examed) Musculoskeletal: No nl extremities to inspection, No nl gait and stance, No joint tenderness, No muscle tone, No muscle weakness, No range of motion, No spine non-tender, No swelling, No other Extremities: No normal pulses, No calf tenderness, No cyanosis, No clubbing, No edema, No pitting pedal edema, No palpable cord, No tenderness, No other Neurological: LEAD RECREATION ASSISTANT II-XII intact, nl mental status, nl speech, nl strength Skin: No nl turgor, No rash or lesions, No diaphoresis, No ecchymosis, No l aceration, No puncture, No other Lymph: No nl lymph nodes, No enlarged, No nontender, No other Results Result Diagram: 02/14/19212402/14/192124 Results 24hrs Laboratory Tests Test 02/16/19 06:19 White Blood Count Pending Red Blood Count Pending Hemoglobin Pending Hematocrit Pending Mean Corpuscular Volume Pending Mean Corpuscular Hemoglobin Pending Mean Corpuscular Hemoglobin Concent Pending Red Cell Distribution Width Pending Platelet Count Pending Mean Platelet Volume Pending Medications Medication Current Medications Albuterol (Proventil 0.083% (Neb)) 2.5 mg Q4H PRN NEB SHORTNESS OF BREATH; Start 02/15/19 at 04:00 Amlodipine Besylate (Norvasc) 5 mg DAILY PO ; Start 02/15/19 at 09:00 Benzonatate (Tessalon) 100 mg TID PO Last administered on 02/15/19at 21:21; Admin Dose 100 MG; Start 02/15/19 at 09:00 Folic Acid (Folic Acid) 1 mg DAILY PO Last administered on 02/15/19at 11:08; Admin Dose 1 MG; Start 02/15/19 at 09:00 Losartan Potassium (Cozaar) 50 mg DAILY PO ; Start 02/15/19 at 09:00 Nystatin (Nystatin Susp) 5 ml QID PO Last administered on 02/15/19at 21:21; Admin Dose 5 ML; Start 02/15/19 at 09:00 IV Flush (NS 3 ml) 3 ml PER PROTOCOL IV ; Start 02/15/19 at 04:00 Ondansetron HCl (Zofran Tab) 4 mg Q6H PRN PO NAUSEA/VOMITING; Start 02/15/19 at 04:00 Acetaminophen (Tylenol Tab) 650 mg Q6H PRN PO .PAIN 1-3 OR TEMP; Start 02/15/19 at 04:00 Docusate Sodium (Colace) 100 mg Q12H PRN PO .CONSTIPATION Last administered on 02/15/19at 17:11; Admin Dose 100 MG; Start 02/15/19 at 04:00 Albuterol (Ventolin Hfa) 2 puff Q4H PRN INH Dyspnea; Start 02/15/19 at 04:00 Acetaminophen/ Hydrocodone Bitart ([place] (5/325)) 1 tab Q6H PRN PO MODERATE PAIN LEVEL 4-6; Start 02/15/19 at 11:00 Famotidine (Pepcid) 20 mg DAILY PO Last administered on 02/15/19at 10:05; Admin Dose 20 MG; Start 02/15/19 at 09:00 Sodium Chloride 1,000 ml @ 125 mls/hr Q8H IV Last administered on 02/16/19 02:22; Admin Dose 125 MLS/HR; Start 02/15/19 at 09:40 Ceftriaxone Sodium 50 ml @ 100 mls/hr Q24H IVPB Last administered on 02/15/19at 23:30; Admin Dose 100 MLS/HR; Start 02/15/19 at 23:30 DEEJAY DURAN MD Feb 16, 2019 07:33
[2019-02-16 08:11] VITALS: PULSE 85
[2019-02-16] MEDS ORDERED: CEPH500C PO (08:26)
--- NOTE | 2019-02-16 08:26 | PDOCDIS ---
Discharge Instructions CONDITION [id number] Patient Condition: [id number] Good HOME CARE INSTRUCTIONS: [id number] Diet Instructions: [id number] FOLLOW UP/APPOINTMENTS Follow-up Plan pcp [address] Ashton 1 week Home hospice SOL JOHNSON MD Feb 16, 2019 08:26
[2019-02-16] MEDS: AMLODIPINE 5 MG TAB PO SCH (08:41)
[2019-02-16] MEDS: NYSTATIN SUSP 5 ML CUP PO SCH (08:41)
[2019-02-16] MEDS: FAMOTIDINE 20 MG TAB PO SCH (08:41)
[2019-02-16] MEDS: LOSARTAN 50 MG TAB PO SCH (08:41)
[2019-02-16] MEDS: FOLIC ACID 1 MG TAB PO SCH (08:41)
[2019-02-16] MEDS: BENZONATATE 100 MG CAP PO SCH (08:41)
[2019-02-16 08:47] VITALS: BP 133/67; PULSE 98; RESP 18
--- NOTE | 2019-02-16 09:19 | DS ---
DATE OF ADMISSION: 02/15/2019 DATE OF DISCHARGE: DISCHARGE DIAGNOSES: 1. Widely metastatic small cell lung cancer. 2. Large right renal mass, most likely metastatic disease versus primary renal cell carcinoma. 3. Gross hematuria, resolved. 4. Hypertension. 5. Hyperlipidemia. HOSPITAL COURSE: A 73-year-old female with known widely metastatic small cell carcinoma of the longe r, presented to emergency room with complaints of gross hematuria. The patient has previously underg one radiation therapy to the right upper lobe of the lung in 09/2018. She has refused any surgical i ntervention or chemotherapy. During this admission, showed a large right renal mass. The PET CT sca n the week prior to admission identified the 7.5 cm right renal mass with hypermetabolic lymphadenopa fer along the tied margins of the right kidney. The patient was seen in consultation by Urology. She refuses any surgical intervention. She was also seen by the oncologist, Dr. Ashton. The patie nt refuses systemic chemotherapy. The options were discussed with the patient and her children at e bedside. According to them, patient has been under the care of hospice since the prior year. They wish to continue home hospice. The patient lives with her son at home. At the time of my visit, e denies any pain or discomfort. Gross hematuria has resolved. Her hemoglobin was down to 7. The p atient is also found to have a urinary tract infection. She is being discharged home in the care of hospice. The patient can follow up with Oncology as outpatient if she decides to receive chemotherap y. I have prescribed 7 days of Keflex. Dictated By: SOL MARTIN/CHICHI Conf#: [id number] DID#: [id number] CC: JANELLE MAY MD; UNSPECIFIED ROGER CRAWLEY;*EndCC*
== END 2019-02-16 12:06 | disposition home health service (06) | DRG 696 ==
LOC: FTE 16:37 → TEL 02-15 03:39 → CANRESERV 02-15 07:21 → EDBEDREQ 02-15 09:35 → EDBEDREQSVC 02-15 09:35
PROVIDERS: ADMIT Internal Medicine; ATTEND Internal Medicine
DX: R31.0 Gross hematuria (principal); C79.01 Secondary malignant neoplasm of right kidney and renal pelvis; C34.90 Malignant neoplasm of unspecified part of unspecified bronchus or lung; I10 Essential (primary) hypertension; N13.30 Unspecified hydronephrosis
CPT/HCPCS: 36415; 74177; 80048; 80053; 81001; 84436; 84479; 85025; 85610; 85730; 87086; 93005; 96361; 96365; 96375; J0692; J0696; J2060; J2270; J2405; J7030; Q9967

== ENCOUNTER 2019-02-23 14:26 | Inpatient (IN) | payer OTHER ==
[~2019-02-23] VITALS: Ht 147.3 cm; Wt 37.0 kg
[~2019-02-23 14:26] MED LIST changes: +CEPH500C PO; -PRED20TA PO
--- NOTE | 2019-02-23 15:37 | ERD ---
ER Documentation Chief Complaint Chief Complaint headache , blurry vision , chest congestion x 2 days HPI This is a 73-year-old woman complaining of headache and diplopia since last night. Headache is diffuse and global and not unlike prior episodes, she states she has had double vision since last night as well. She denies vision loss, no fevers or chills, no neck pain or neck stiffness. Patient does have a history of diffusely metastatic lung cancer and has not yet started chemotherapy. Patient denies chest pain or shortness of breath. ROS All systems reviewed and are negative except as per history of present illness. Medications Home Meds Active Scripts Cephalexin* (Cephalexin*) 500 Mg Capsule, 500 MG PO Q8 for 7 Days, #21 CAP Prov:SOL JOHNSON MD 02/16/19 Nystatin (Nystatin) 100,000 Unit/1 Ml Oral.susp, 5 ML PO QID for 7 Days, OZ Swish and swallow Prov:MADELYN PERES MD 10/18/18 Famotidine* (Pepcid*) 20 Mg Tablet, 20 MG PO BID for 10 Days, TAB Prov:MADELYN PERES MD 10/18/18 Acetaminophen with Codeine (Acetaminophen-Cod #3 Tablet) 1 Each Tablet, 1 TAB PO Q6H PRN for PAIN, #12 TAB Prov:MADELYN PERES MD 10/18/18 Albuterol Sulfate* (Ventolin HFA*) 18 Gm Hfa.aer.ad, 2 PUFF INHALATION Q4H, #1 INHALER Prov:ANN JACOBSEN MD 09/26/18 Albuterol Sulfate* (Albuterol Sulfate* Neb) 0.083%-3 Ml Neb, 2.5 MG NEB Q4H PRN for SHORTNESS OF BREATH, #30 VIAL 4 Refills Prov:ANN JACOBSEN MD 09/26/18 Nebulizer (Compact Compressor Nebulizer) 1 Each Each, EACH , #1 Prov:ANN JACOBSEN MD 09/26/18 Guaifenesin/Codeine Phosphate (Codeine-Guaifen 10-100 mg/5 ml) 120 Ml Liquid, 5 ML PO Q4H PRN for COUGH, #1 BOT Prov:ANN JACOBSEN MD 09/26/18 Benzonatate* (Benzonatate*) 100 Mg Capsule, 100 MG PO TID for 10 Days, #30 CAP Prov:ANN JACOBSEN MD 09/26/18 Reported Medications Cyanocobalamin* (Vitamin B12*) Unknown Strength Tab, 1 TAB PO DAILY, TAB 09/08/18 Cholecalciferol* (Vitamin D3*) Unknown Strength Tablet, 1 TAB PO DAILY, TAB 09/08/18 Folic Acid* (Folic Acid*) 1 Mg Tablet, 1 MG PO DAILY, TAB 09/08/18 Losartan Potassium* (Losartan Potassium*) 50 Mg Tablet, 50 MG PO DAILY, TAB 09/08/18 Amlodipine Besylate* (Norvasc*) 5 Mg Tablet, 5 MG PO DAILY, TAB 09/08/18 Simvastatin* (Zocor*) 20 Mg Tablet, 20 MG PO QHS, #30 TAB 09/08/18 Discontinued Scripts Losartan Potassium* (Losartan Potassium*) 50 Mg Tablet, 50 MG PO DAILY, #30 TAB Prov:MADELYN PERES MD 10/18/18 Prednisone* (Prednisone*) 20 Mg Tab, 40 MG PO DAILY, #10 TAB Prov:ANN JACOBSEN MD 09/26/18 Allergies Allergies: Coded Allergies: No Known Allergy (Unverified , 02/14/19) PMhx/Soc Metastatic lung cancer, right renal mass most likely carcinoma, hypertension, hyperlipidemia, left renal angiomyolipoma History of Surgery: Yes (hemorroidectomy) Anesthesia Reaction: Yes Hx Neurological Disorder: No Hx Respiratory Disorders: Yes (Lung CA) Hx Cardiac Disorders: Yes (HTN, high cholesterol) Hx Psychiatric Problems: No Hx Miscellaneous Medical Probl: No Hx Alcohol Use: No Hx Substance Use: No Hx Tobacco Use: No FmHx Family History: diabetes Physical Exam Vitals Vital Signs Date Temp Pulse Resp B/P (MAP) Pulse Ox O2 O2 Flow FiO2 Time Delivery Rate 02/23/19 92 15 127/81 100 Room Air 17:00 (96) 02/23/19 87 16 143/84 100 Room Air 16:00 (103) 02/23/19 90 14 145/82 100 Room Air 15:35 (103) 02/23/19 97.8 109 18 130/70 100 14:39 (90) Physical Exam GENERAL: Well-developed, elderly woman, dehydrated, appears anxious, afebrile HEENT: Dry mucous membranes, no cervical spine tenderness or step-off deformities, no goiter, no jaundice or icterus, extraocular movements intact without pain. NEURO: Alert and oriented 3, pupils equal round reactive to light, no focal deficits or facial asymmetry, sensation intact distally Strength 5/5 in upper and lower extremities bilaterally CARDIAC: Tachycardic and regular, no murmurs rubs or gallops LUNGS: Clear bilaterally no wheezing crackles or stridor ABDOMEN: Soft nontender, no guarding, no rigidity, no rebound, no psoas sign no obturator sign. SKIN: Warm and dry to touch, no abrasions, contusions, or hematomas, no lacerations, no ecchymosis, no target lesions, and without ulcers EXTREMITIES: No clubbing cyanosis or edema, calves are bilaterally symmetrical, no Homans sign, no popliteal cord sign. Distal pulses equal and bilateral PSYCH: Appears anxious Result Diagram: 02/23/19 1550 02/23/19 1550 Results 24 hrs Laboratory Tests Test 02/23/19 15:50 White Blood Count 7.4 10^3/ul Red Blood Count 3.04 10^6/ul Hemoglobin 8.1 g/dl Hematocrit 25.5 % Mean Corpuscular Volume 83.9 fl Mean Corpuscular Hemoglobin 26.6 pg Mean Corpuscular Hemoglobin Concent 31.8 g/dl Red Cell Distribution Width 14.5 % Platelet Count 330 10^3/UL Mean Platelet Volume 8.3 fl Immature Granulocytes % 0.700 % Neutrophils % 75.6 % Lymphocytes % 12.2 % Monocytes % 10.3 % Eosinophils % 0.7 % Basophils % 0.5 % Nucleated Red Blood Cells % 0.0 /100WBC Immature Granulocytes # 0.050 10^3/ul Neutrophils # 5.6 10^3/ul Lymphocytes # 0.9 10^3/ul Monocytes # 0.8 10^3/ul Eosinophils # 0.1 10^3/ul Basophils # 0.0 10^3/ul Nucleated Red Blood Cells # 0.0 10^3/ul Sodium Level 135 mmol/L Potassium Level 3.8 mmol/L Chloride Level 98 mmol/L Carbon Dioxide Level 29 mmol/L Anion Gap 8 Blood Urea Nitrogen 12 mg/dl Creatinine 1.09 mg/dl Est Glomerular Filtrat Rate mL/min mL/min Glucose Level 115 mg/dl Calcium Level 10.0 mg/dl Total Bilirubin 0.4 mg/dl Direct Bilirubin 0.00 mg/dl Indirect Bilirubin 0.4 mg/dl Aspartate Amino Transf (AST/SGOT) 93 IU/L Alanine Aminotransferase (ALT/SGPT) 34 IU/L Alkaline Phosphatase 70 IU/L Troponin I < 0.012 ng/ml Total Protein 8.2 g/dl Albumin 4.4 g/dl Globulin 3.80 g/dl Albumin/Globulin Ratio 1.15 Lipase 437 U/L Current Medications Medications Dose Sig/Kourtney Start Time Status Last (Trade) Ordered Route PRN Stop Time Admin Dose Reason Admin Sodium 1,000 ml @ Q1H STAT 02/23/19 DC 02/23/19 Chloride 1,000 mls/hr IV 15:41 02/23/19 15:55 16:40 Ondansetron 4 mg ONCE STAT 02/23/19 DC 02/23/19 HCl (Zofran IV 15:41 02/23/19 15:55 Inj) 15:42 Lorazepam 0.5 mg ONCE ONCE 02/23/19 DC (Ativan) PO 16:30 02/23/19 16:31 Ketorolac 15 mg ONCE STAT 02/23/19 DC 02/23/19 Tromethamine IV 16:47 02/23/19 16:54 (Toradol) 16:48 8 mg ONCE ONCE 02/23/19 02/23/19 Dexamethasone IV 18:30 02/23/19 18:18 (Decadron) 18:31 Sodium 1,000 ml @ [id number] IV 02/23/19 Chloride 80 mls/hr 18:22 02/24/19 06:51 Ondansetron 4 mg ER BRIDGE 02/23/19 HCl (Zofran PRN IV 18:30 02/24/19 Inj) NAUSEA/VOMITI 18:29 NG 650 mg ER BRIDGE 02/23/19 Acetaminophen PRN PO 18:30 02/24/19 (Tylenol .MILD PAIN 18:29 Tab) 1-3 OR TEMP Procedures/MDM IV line was established patient was placed on bus monitor rhythm strip revealed a sinus tachycardia at 100 bpm with upright P and T waves. Patient was afebrile EKG performed, read by me revealed a sinus tachycardia at 101 bpm, normal axis, narrow QRS complex, no concerning ST elevations or depressions noted I administered 1 L normal saline IV for dehydration, Zofran 4 mg IV, lorazepam 0.[address] scan of the brain was performed, IMPRESSION: 1. Multiple intracranial/parenchymal masses, as described above. The largest measures 3 cm in maximum diameter, compresses the adjacent parenchyma, and is associated with vasogenic edema. Given the history of right-sided lung mass, this is concerning for metastatic disease. Suggest further evaluation with MRI with IV contrast. 2. No acute infarct. No intracranial hemorrhage. 1 view chest x-ray performed, read by me revealed right lung masses, no acute infiltrates, no pneumothorax. CBC reveals anemia, electrolytes are unremarkable, liver function tests normal, troponin negative I spoke to her insurance directed physician Dr. Ma who agreed to admit the patient to telemetry setting further consults and imaging deferred to him Departure Diagnosis: Primary Impression: Headache Headache type: unspecified Headache chronicity pattern: unspecified pattern Intractability: intractable Qualified Codes: R51 - Headache Additional Impressions: Diplopia Brain metastases Condition: COLE Sanders MD Feb 23, 2019 15:37
[2019-02-23] MEDS ORDERED: SOD CHLORIDE 0.9% 1,000 ML IV STA (15:41)
[2019-02-23] MEDS ORDERED: ONDANSETRON 4 MG INJ IV STA (15:41)
[2019-02-23] MEDS ORDERED: LORAZEPAM 0.5 MG TAB PO ONE (16:30)
[2019-02-23] MEDS ORDERED: KETOROLAC 15 MG INJ IV STA (16:47)
[2019-02-23] MEDS ORDERED: SOD CHLORIDE 0.9% 1,000 ML IV SCH (18:22)
[2019-02-23] MEDS ORDERED: ONDANSETRON 4 MG INJ IV PRN (18:30)
[2019-02-23] MEDS ORDERED: DEXAMETHASONE 10 MG/ML 1 ML INJ IV ONE (18:30)
[2019-02-23] MEDS ORDERED: ACETAMINOPHEN 325 MG TAB PO PRN (18:30)
[2019-02-23] MEDS ORDERED: VITA1TAB83 PO (21:22)
[2019-02-23] MEDS ORDERED: CHOL200073 PO (21:22)
[2019-02-23] MEDS ORDERED: FLUT1BLS3 IH (21:22)
[2019-02-23 23:45] VITALS: BP 126/66; PULSE 98; RESP 19; Ht 147.3 cm; Wt 37.0 kg
[2019-02-24] VITALS (11 sets, daily range): BP systolic 107–123; BP diastolic 57–74; PULSE 87–106; RESP 16–18
[2019-02-24] MEDS ORDERED: ACETAMINOPHEN 325 MG TAB PO PRN (00:30)
[2019-02-24] MEDS ORDERED: CHOLECALCIFEROL 1,000 UNIT TAB PO SCH (09:00)
[2019-02-24] MEDS ORDERED: CYANOCOBALAMIN 500 MCG TAB PO SCH (09:00)
[2019-02-24] MEDS ORDERED: LOSARTAN 50 MG TAB PO SCH (09:00)
[2019-02-24] MEDS ORDERED: FOLIC ACID 1 MG TAB PO SCH (09:00)
[2019-02-24] MEDS ORDERED: AMLODIPINE 5 MG TAB PO SCH (09:00)
[2019-02-24] MEDS: DEXAMETHASONE 2 MG TAB PO SCH ×3 (09:38→17:20)
--- NOTE | 2019-02-24 10:19 | PDOCDIS ---
Discharge Instructions CONDITION [id number] Patient Condition: [id number] Good HOME CARE INSTRUCTIONS: [id number] Diet Instructions: [id number] FOLLOW UP/APPOINTMENTS Follow-up Plan pcp 1 week oncology 1 week SOL JOHNSON MD Feb 24, 2019 10:19
[2019-02-24] MEDS ORDERED: DEXS PO (10:30)
--- NOTE | 2019-02-24 11:07 | HP ---
DATE OF ADMISSION: 02/23/2019 CHIEF COMPLAINT: Diplopia and dizziness. HISTORY OF PRESENT ILLNESS: A 73-year-old female with known history of metastatic small cell carcino ma of the lung presented to emergency room with complaint of headache associated with diplopia and di zziness. The patient denies any focal weakness or numbness. No problem with gait or stability. Ini tial evaluation revealed evidence of metastatic disease to the brain. PAST MEDICAL HISTORY: 1. Widely metastatic small cell lung CA. 2. Large renal mass, most likely due to metastasis versus primary renal cell carcinoma. 3. Hypertension. 4. Hyperlipidemia. PHYSICAL EXAMINATION: GENERAL: Well-developed, well-nourished elderly female who is in no apparent distress. She reports having persistent diplopia. VITAL SIGNS: Stable. She is afebrile. HEENT: Extraocular muscles are intact. Pupils are equal and reactive to light bilaterally. Sclerae are anicteric. Oropharynx is clear and moist. NECK: Supple, no JVD, no carotid bruits. LUNGS: Clear to auscultation bilaterally. CARDIAC: Regular rate and rhythm. No murmurs, rubs or gallops. ABDOMEN: Soft, nontender, nondistended, normoactive bowel sounds. EXTREMITIES: No clubbing, cyanosis, or edema. NEUROLOGIC: Grossly nonfocal except presence of diplopia. IMAGING STUDIES: CAT scan of the brain done, which showed multiple intracranial/parenchymal masses, the largest measuring 3 cm in maximum diameter. This compresses the adjacent parenchyma and associat ed with vasogenic edema. ASSESSMENT: A 73-year-old female with; 1. New onset diplopia and dizziness secondary to brain metastasis. 2. Widely metastatic small cell lung cancer, awaiting treatment. 3. Hypertension. 4. Hyperlipidemia. PLAN: 1. Place in med/surg observation, proceed with MRI of brain. Discharge planning following MRI with followup as outpatient. 2. Arrange radiation therapy evaluation as outpatient. Dictated By: SOL JOHNSON MD SK/NTS Conf#: [id number] DID#: [id number] CC: ROBERT MURPHY MD;*EndCC*
--- NOTE | 2019-02-24 20:26 | DS ---
DATE OF ADMISSION: 02/23/2019 DATE OF DISCHARGE: 02/24/2019 DISCHARGE DIAGNOSES: 1. A 73-year-old female with diplopia and dizziness secondary to metastatic brain lesions. 2. Widely metastatic small cell lung cancer. 3. Chronic obstructive pulmonary disease. 4. Large kidney mass most likely metastatic lesion. 5. Gross hematuria. 6. Hypertension. HOSPITAL COURSE: A 73-year-old female with known history of widely metastatic small cell carcinoma o f the lung, awaiting treatment as an outpatient, presented with complaints of diplopia and dizziness. CAT scan of the brain showed multiple intracranial/parenchymal masses. The largest measured 3 cm i n maximum diameter. This compresses adjacent parenchyma and associated with vasogenic edema. The ca se was discussed with Dr. Ashton, her oncologist. MRI of the brain will be done prior to discharge . Dr. Ashton recommended Decadron 4 mg q.12 hours. This was prescribed. The patient is in stable condition for discharge. She will undergo right kidney embolization as outpatient as requested by Karlee Ashton and recommended by Dr. Portillo during last admission. Dictated By: SOL MARTIN/NTS Conf#: [id number] DID#: [id number] CC: ROBERT MURPHY MD; Dr. Ashton;*EndCC*
[2019-02-24] MEDS ORDERED: ATORVASTATIN 10 MG TAB PO SCH (21:00)
== END 2019-02-24 20:05 | disposition home or self-care (01) | DRG 55 ==
LOC: E/R 14:26 → 6WM 18:23
PROVIDERS: ADMIT Internal Medicine; ATTEND Internal Medicine
DX: C79.31 Secondary malignant neoplasm of brain (principal); C34.90 Malignant neoplasm of unspecified part of unspecified bronchus or lung; J44.9 Chronic obstructive pulmonary disease, unspecified; N28.89 Other specified disorders of kidney and ureter; R31.0 Gross hematuria; I10 Essential (primary) hypertension
CPT/HCPCS: 36415; 70450; 70552; 71045; 80053; 83690; 84484; 85025; 93005; 96374; 96375; J1100; J1885; J2405; J7030

== ENCOUNTER 2019-03-11 23:47 | Observation (INO) | payer OTHER ==
[~2019-03-11] VITALS: Ht 147.3 cm; Wt 36.4 kg
[~2019-03-11 23:47] MED LIST changes: -BENZ-5 PO; -CHOL100062 PO; +CHOL200073 PO; +DEXS PO; +FLUT1BLS3 IH; -LOSA50TA14 PO; +VITA1TAB83 PO
[2019-03-12] VITALS (10 sets, daily range): BP systolic 121–176; BP diastolic 75–96; PULSE 84–114; RESP 18–20; Ht 147.3 cm; Wt 36.4 kg
[2019-03-12] MEDS ORDERED: ONDANSETRON 4 MG INJ IV STA (00:18)
[2019-03-12] MEDS ORDERED: HYDROmorphONE 1 MG/ML SYG IV STA (00:18)
[2019-03-12] MEDS ORDERED: SOD CHLORIDE 0.9% 500 ML IV STA (00:18)
[2019-03-12] MEDS: POTASSIUM CHLORIDE 100 ML IVPB SCH ×4 (02:25→14:33)
[2019-03-12] MEDS: D5W-0.45 NACL + KCL 20 MEQ 1,000 ML IV SCH ×4 (02:46→23:09)
[2019-03-12] MEDS ORDERED: NACL 0.9% 3 ML SYG IV SCH (03:00)
[2019-03-12] MEDS ORDERED: ALBUTEROL HFA 8 GM INHALER INH PRN (03:00)
[2019-03-12] MEDS: NYSTATIN SUSP 5 ML CUP PO SCH ×5 (03:00→20:12)
[2019-03-12] MEDS ORDERED: HYDROCODONE/APAP (5/325) TAB PO PRN (03:00)
[2019-03-12] MEDS ORDERED: ALBUTEROL 0.083% (NEB) 2.5 MG/3 ML AMP NEB PRN (03:00)
[2019-03-12] MEDS ORDERED: DOCUSATE SODIUM 100 MG CAP PO PRN (03:00)
[2019-03-12] MEDS ORDERED: ONDANSETRON 4 MG TAB PO PRN (03:00)
[2019-03-12] MEDS ORDERED: ACETAMINOPHEN 325 MG TAB PO PRN (03:00)
[2019-03-12] MEDS ORDERED: MAGNESIUM HYDROXIDE 30ML CUP PO PRN (03:00)
[2019-03-12] MEDS ORDERED: BISACODYL (EC) 5 MG TAB PO PRN (03:00)
--- NOTE | 2019-03-12 03:14 | ERD ---
ER Documentation Chief Complaint Chief Complaint generalized body pain. hx of lung CA w/ mets. tramadol 10:30pm HPI 73-year-old female generalized body pain that is out of control per family. Patient has history of metastatic lung cancer and usually are able to keep her pain at bay with tramadol. Today they were not unable to. No fevers no chills no nausea no vomiting no trauma. ROS All systems reviewed and are negative except as per history of present illness. Medications Home Meds Active Scripts Dexamethasone* (Dexamethasone* Intensol) 1 Mg/Ml Soln, 4 MG PO Q12 for 30 Days, ML Prov:SOL JOHNSON MD 02/24/19 Nystatin (Nystatin) 100,000 Unit/1 Ml Oral.susp, 5 ML PO QID for 7 Days, OZ Swish and swallow Prov:MADELYN PERES MD 10/18/18 Famotidine* (Pepcid*) 20 Mg Tablet, 20 MG PO BID for 10 Days, TAB Prov:MADELYN PERES MD 10/18/18 Acetaminophen with Codeine (Acetaminophen-Cod #3 Tablet) 1 Each Tablet, 1 TAB PO Q6H PRN for PAIN, #12 TAB Prov:MADELYN PERES MD 10/18/18 Albuterol Sulfate* (Ventolin HFA*) 18 Gm Hfa.aer.ad, 2 PUFF INHALATION Q4H, #1 INHALER Prov:ANN JACOBSEN MD 09/26/18 Albuterol Sulfate* (Albuterol Sulfate* Neb) 0.083%-3 Ml Neb, 2.5 MG NEB Q4H PRN for SHORTNESS OF BREATH, #30 VIAL 4 Refills Prov:ANN JACOBSEN MD 09/26/18 Nebulizer (Compact Compressor Nebulizer) 1 Each Each, EACH MC, #1 Prov:NAN JACOBSEN MD 09/26/18 Guaifenesin/Codeine Phosphate (Codeine-Guaifen 10-100 mg/5 ml) 120 Ml Liquid, 5 ML PO Q4H PRN for COUGH, #1 BOT Prov:ANN JACOBSEN MD 09/26/18 Reported Medications Fluticasone/Umeclidin/Vilanter (Trelegy Ellipta 100-62.5-25) 1 Each Blst.w.dev, 1 EACH IH 02/23/19 Vitamin B Complex (B Complex # 1) 1 Each Tablet, 1 TAB PO DAILY for 90 Days, #90 02/23/19 Cholecalciferol (Vitamin D3) (VITAMIN D-3) 2,000 Unit Capsule, 2000 UNIT PO DAILY for 90 Days, #90 02/23/19 Cyanocobalamin* (Vitamin B12*) Unknown Strength Tab, 1 TAB PO DAILY, TAB 09/08/18 Folic Acid* (Folic Acid*) 1 Mg Tablet, 1 MG PO DAILY, TAB 09/08/18 Amlodipine Besylate* (Norvasc*) 5 Mg Tablet, 5 MG PO DAILY, TAB 09/08/18 Simvastatin* (Zocor*) 20 Mg Tablet, 20 MG PO QHS, #30 TAB 09/08/18 Discontinued Scripts Cephalexin* (Cephalexin*) 500 Mg Capsule, 500 MG PO Q8 for 7 Days, #21 CAP Prov:SOL JOHNSON MD 02/16/19 Allergies Allergies: Coded Allergies: No Known Allergy (Unverified , 03/11/19) PMhx/Soc History of Surgery: Yes (Hemrrhoidectomy- 50 years ago) Anesthesia Reaction: No Hx Neurological Disorder: No Hx Respiratory Disorders: Yes (Lung CA) Hx Cardiac Disorders: Yes (HTN, high cholesterol) Hx Psychiatric Problems: No Hx Miscellaneous Medical Probl: Yes (Lung CA mets to brain) Hx Alcohol Use: No Hx Substance Use: No Hx Tobacco Use: No Smoking Status: Never smoker Physical Exam Vitals Vital Signs Date Temp Pulse Resp B/P (MAP) Pulse Ox O2 O2 Flow FiO2 Time Delivery Rate 03/12/19 97.8 92 18 149/90 98 Room Air 02:30 (109) 03/12/19 97.8 92 18 132/81 98 Room Air 00:35 (98) 03/11/19 97.8 107 24 152/98 98 23:49 (116) Physical Exam Const: No acute distress Head: Atraumatic Eyes: Normal Conjunctiva ENT: Normal External Ears, Nose and Mouth. Neck: Full range of motion. No meningismus. Resp: Clear to auscultation bilaterally Cardio: Regular rate and rhythm, no murmurs Abd: Soft, non tender, non distended. Normal bowel sounds Skin: No petechiae or rashes Back: No midline or flank tenderness Ext: No cyanosis, or edema Neur: Awake and alert Psych: Normal Mood and Affect Result Diagram: 03/12/19 0052 03/12/19 0052 Results 24 hrs Laboratory Tests Test 03/12/19 00:52 White Blood Count 9.2 10^3/ul Red Blood Count 2.46 10^6/ul Hemoglobin 6.2 g/dl Hematocrit 19.8 % Mean Corpuscular Volume 80.5 fl Mean Corpuscular Hemoglobin 25.2 pg Mean Corpuscular Hemoglobin Concent 31.3 g/dl Red Cell Distribution Width 15.4 % Platelet Count 334 10^3/UL Mean Platelet Volume 8.8 fl Immature Granulocytes % 0.500 % Neutrophils % % Segmented Neutrophils % (Manual) 93 % Lymphocytes % % Lymphocytes % (Manual) 2 % Monocytes % % Monocytes % (Manual) 5 % Eosinophils % % Basophils % % Nucleated Red Blood Cells % 0.0 /100WBC Immature Granulocytes # 0.050 10^3/ul Neutrophils # 10^3/ul Lymphocytes (Manual) 0.1 10^3/ul Lymphocytes # 10^3/ul Monocytes # 10^3/ul Monocytes # (Manual) 0.4 10^3/ul Eosinophils # 10^3/ul Basophils # 10^3/ul Nucleated Red Blood Cells # 10^3/ul Platelet Estimate NORMAL Polychromasia 3+ Hypochromasia 1+ Poikilocytosis 2+ Anisocytosis 1+ Target Cells 1+ Acanthocytes 1+ Urine Color YELLOW Urine Clarity CLOUDY Urine pH 7.0 Urine Specific [place] 1.017 Urine Ketones NEGATIVE mg/dL Urine Nitrite POSITIVE mg/dL Urine Bilirubin NEGATIVE mg/dL Urine Urobilinogen NEGATIVE mg/dL Urine Leukocyte Esterase 3+ Emeli/ul Urine Microscopic RBC 35 /HPF Urine Microscopic WBC 172 /HPF Urine Squamous Epithelial Cells FEW /HPF Urine Bacteria MODERATE /HPF Urine Mucus FEW /HPF Urine Hemoglobin 1+ mg/dL Urine Glucose NEGATIVE mg/dL Urine Total Protein 1+ mg/dl Sodium Level 133 mmol/L Potassium Level 2.8 mmol/L Chloride Level 91 mmol/L Carbon Dioxide Level 35 mmol/L Anion Gap 7 Blood Urea Nitrogen 25 mg/dl Creatinine 1.05 mg/dl Est Glomerular Filtrat Rate mL/min mL/min Glucose Level 105 mg/dl Calcium Level 9.3 mg/dl Total Bilirubin 0.2 mg/dl Direct Bilirubin 0.00 mg/dl Indirect Bilirubin 0.2 mg/dl Aspartate Amino Transf (AST/SGOT) 81 IU/L Alanine Aminotransferase (ALT/SGPT) 30 IU/L Alkaline Phosphatase 58 IU/L Troponin I < 0.012 ng/ml Total Protein 6.8 g/dl Albumin 3.9 g/dl Globulin 2.90 g/dl Albumin/Globulin Ratio 1.34 Lipase 428 U/L Current Medications Medications Dose Sig/Kourtney Start Time Status Last (Trade) Ordered Route PRN Stop Time Admin Dose Reason Admin Sodium 500 ml @ Q1H STAT 03/12/19 DC 03/12/19 Chloride 500 mls/hr IV 00:18 00:46 03/12/19 01:17 1 mg ONCE STAT 03/12/19 DC 03/12/19 Hydromorphone IV 00:18 00:46 HCl 03/12/19 00:19 (Dilaudid) Ondansetron 4 mg ONCE STAT 03/12/19 DC 03/12/19 HCl (Zofran IV 00:18 00:45 Inj) 03/12/19 00:19 Potassium 100 ml @ Q2H IVPB 03/12/19 03/12/19 Chloride 50 mls/hr 02:00 02:25 03/12/19 09:59 Potassium 1,000 ml @ [id number] IV 03/12/19 Chloride/Dext 75 mls/hr 02:46 leopoldo/ Sod Cl IV Flush 3 ml PER 03/12/19 (NS 3 ml) PROTOCOL IV 03:00 Ondansetron 4 mg Q6H PRN 03/12/19 HCl (Zofran PO 03:00 Tab) NAUSEA/VOMITI NG 650 mg Q6H PRN 03/12/19 Acetaminophen PO .PAIN 1-3 03:00 (Tylenol OR TEMP Tab) 1 tab Q6H PRN 03/12/19 Acetaminophen PO .PAIN 4-6 03:00 / Hydrocodone Bitart ([place] (5/325)) Docusate 100 mg Q12H PRN 03/12/19 Sodium PO 03:00 (Colace) .CONSTIPATION Magnesium 30 ml DAILY PRN 03/12/19 Hydroxide PO 03:00 (Milk Of Mag) .CONSTIPATION Bisacodyl 5 mg DAILY PRN 03/12/19 (Dulcolax) PO 03:00 .CONSTIPATION Famotidine 20 mg Q12 PO 03/12/19 (Pepcid) 09:00 Heparin 5,000 unit Q8 SC 03/12/19 Sodium 06:00 (Porcine) (Heparin (5000 Units/1ml)) Albuterol 2.5 mg Q4H RESP 03/12/19 (Proventil THERAPY PRN 03:00 0.083% (Neb)) NEB SHORTNESS OF BREATH Albuterol 2 puff Q4H RESP 03/12/19 (Ventolin THERAPY PRN 03:00 Hfa) INH WHEEZING Amlodipine 5 mg DAILY PO 03/12/19 Besylate 09:00 (Norvasc) 2,000 unit DAILY PO 03/12/19 Cholecalcifer 09:00 ol (Vitamin D) 4 mg Q12 PO 03/12/19 DC Dexamethasone 09:00 (Decadron 03/12/19 09:00 Intensol Liquid) Folic Acid 1 mg DAILY PO 03/12/19 (Folic Acid) 09:00 Nystatin 5 ml QID PO 03/12/19 (Nystatin 03:00 Susp) 5 ml Q4H PRN 03/12/19 DC Miscellaneous PO COUGH 03:00 Information 03/12/19 03:00 20 mg QHS PO 03/12/19 DC Miscellaneous 21:00 Information 03/12/19 21:00 10 mg DAILY@21 03/12/19 Atorvastatin PO 21:00 Calcium (Lipitor) 5 ml Q4H PRN 03/12/19 Guaifenesin/ PO COUGH 03:30 Codeine Phosphate (Robitussin Ac Liquid Cup) 4 mg Q12 PO 03/12/19 Dexamethasone 09:00 (Decadron) Procedures/MDM EKG: Rate/Rhythm: [Normal Sinus Rhythm] QRS, ST, T-waves: [No changes consistent w/ acute ischemia] Impression: [No evidence of ischemia or arrhythmia] Chest X-ray 1V Interpreted by me: Soft Tissue: No acute abnormalities Bones: No acute abnormalities Mediastinum/Cardiac Silhouette/Lungs: [No acute abnormalities] Medical decision making: This is a 73-year-old female multiple medical problems and the largest of which is metastatic cancer. Patient is anemic likely secondary to the cancer, she is guaiac negative. Type and cross for 2 units. Also potassium was repleted and normal saline fluid bolus was given. Patient will be admitted to telemetric setting to Dr. Santillan who is on-call for the patient's IPI. Departure Diagnosis: Primary Impression: Hypokalemia Additional Impression: Anemia of chronic disease Condition: Serious ANGELIQUE CARDOZO Mar 12, 2019 03:14
[2019-03-12] MEDS ORDERED: GUAIFENESIN/CODEINE 5ML CUP PO PRN (03:30)
[2019-03-12] MEDS: HEPARIN 5,000 UNIT/1 ML VIAL SC SCH ×3 (07:00→22:00)
[2019-03-12] MEDS: FAMOTIDINE 20 MG TAB PO SCH ×2 (08:30→20:13)
[2019-03-12] MEDS: CHOLECALCIFEROL 2,000 UNIT CAP PO SCH (08:30)
[2019-03-12] MEDS: AMLODIPINE 5 MG TAB PO SCH ×2 (08:30→15:04)
[2019-03-12] MEDS: FOLIC ACID 1 MG TAB PO SCH (08:30)
[2019-03-12] MEDS: DEXAMETHASONE 4 MG TAB PO SCH ×2 (08:30→20:12)
[2019-03-12] MEDS ORDERED: DEXAMETHASONE (1 MG/ML PO SYG) PO SCH (09:00)
[2019-03-12] MEDS: HYDROmorphONE 0.5 MG/0.5 ML SYG IV PRN ×3 (12:38→20:35)
--- NOTE | 2019-03-12 15:32 | HP ---
DATE OF ADMISSION: 03/12/2019 CHIEF COMPLAINT: Generalized body ache. HISTORY OF PRESENT ILLNESS: A 73-year-old female with lung cancer metastasized to the brain, present ed to Emergency Room with complaint of generalized body ache. The patient denies any chest pain. No shortness of breath. No abdominal pain, nausea, or vomiting. No hematemesis. No bright red blood per rectum or melena. Initial evaluation revealed hemoglobin of 6.2 with a white blood cell count of 9.2. Her potassium was low at 2.8. The patient is undergoing whole brain radiation for brain metas tases as outpatient. The chest x-ray showed a 3.8 cm right suprahilar mass with possible 10.3 mm sat ellite nodule. ASSESSMENT: 1. A 73-year-old female with lung cancer metastasized to the brain. 2. Generalized body ache. 3. Anemia. 4. Hypokalemia. 5. Chronic obstructive pulmonary disease. 6. Hypertension. 7. Hyperlipidemia. PLAN: 1. Place patient to med/surg observation. 2. Transfuse 2 units of packed RBC. 3. Potassium supplementation. 4. Pain control. 5. Palliative care consultation was requested. Dictated By: SOL MARTIN/CHICHI Conf#: [id number] DID#: [id number] CC: KEVEN SAHA;*EndCC*
[2019-03-12] MEDS ORDERED: NON-FORMULARY/PATIENT OWN MED (Simvastatin* (Zocor*) 20 MG) PO SCH (21:00)
[2019-03-12] MEDS ORDERED: ATORVASTATIN 10 MG TAB PO SCH (21:00)
[2019-03-13] VITALS (7 sets, daily range): BP systolic 110–133; BP diastolic 66–76; PULSE 80–102; RESP 16–18
[2019-03-13] MEDS: D5W-0.45 NACL + KCL 20 MEQ 1,000 ML IV SCH (05:26)
[2019-03-13] MEDS: HYDROmorphONE 0.5 MG/0.5 ML SYG IV PRN ×2 (05:52→10:09)
[2019-03-13] MEDS: HEPARIN 5,000 UNIT/1 ML VIAL SC SCH (06:20)
[2019-03-13] MEDS ORDERED: DOCU-144 PO (08:29)
[2019-03-13] MEDS ORDERED: HYDR-3601 PO (08:29)
--- NOTE | 2019-03-13 08:36 | PDOCDIS ---
Discharge Instructions CONDITION [id number] Patient Condition: [id number] Good HOME CARE INSTRUCTIONS: Ernie Diet Instructions: [id number] FOLLOW UP/APPOINTMENTS Follow-up Plan pcp 1 week oncology and radiation onc SOL JOHNSON MD Mar 13, 2019 08:36
[2019-03-13] MEDS: NYSTATIN SUSP 5 ML CUP PO SCH (09:57)
[2019-03-13] MEDS: DEXAMETHASONE 4 MG TAB PO SCH (09:57)
[2019-03-13] MEDS: CHOLECALCIFEROL 2,000 UNIT CAP PO SCH (09:57)
[2019-03-13] MEDS: FAMOTIDINE 20 MG TAB PO SCH (09:57)
[2019-03-13] MEDS: AMLODIPINE 5 MG TAB PO SCH (09:58)
[2019-03-13] MEDS: FOLIC ACID 1 MG TAB PO SCH (09:58)
--- NOTE | 2019-03-13 10:23 | DS ---
DATE OF ADMISSION: 03/12/2019 DATE OF DISCHARGE: 03/13/2019 DISCHARGE DIAGNOSES: 1. A 73-year-old female with lung cancer metastasized to the brain. 2. Anemia, status post transfusion with 1 unit of packed RBC. 3. Hypokalemia, resolved. 4. Hypertension. 5. Generalized body ache. 6. Hyperlipidemia. HOSPITAL COURSE: A 73-year-old female with recently diagnosed lung cancer metastasized to the brain, presented with complaint of generalized body ache and dehydration. The patient was found to have he moglobin of 6.2. She denies hematemesis, bright red blood per rectum, or melena. Two units of packe d RBC were ordered. However, patient refused the second unit of packed RBC and only received 1 unit. She was also found to have potassium of 2.8. She received adequate potassium supplementation. Rep eat potassium was 3.9. Patient received narcotics for generalized body ache. I recommended a DNR co de status to family members. They were planning to discuss this with other. The patient is in a sta ble condition for discharge at this time. MEDICATIONS ON DISCHARGE: Include: 1. Colace 100 mg b.i.d. 2. [place] 5/325 one tablet every 4 to 6 hours as needed. 3. Albuterol inhaler. 4. Norvasc 5 mg daily. 5. Pepcid 20 mg b.i.d. 6. Dexamethasone 4 mg q.12h. PLAN: 1. Follow up with PCP in 1 week. 2. Follow up with oncology and radiation oncology as outpatient. Dictated By: SOL MARTIN/CHICHI Conf#: [id number] DID#: [id number] CC: KEVEN SAHA MD;*EndCC*
== END 2019-03-13 12:44 | disposition home or self-care (01) ==
LOC: E/R 23:47 → 6WM 03-12 02:51
PROVIDERS: ADMIT Internal Medicine; ATTEND Internal Medicine
DX: D64.9 Anemia, unspecified (principal); C34.90 Malignant neoplasm of unspecified part of unspecified bronchus or lung; C79.31 Secondary malignant neoplasm of brain; E87.6 Hypokalemia; I10 Essential (primary) hypertension; E78.5 Hyperlipidemia, unspecified
CPT/HCPCS: 36415; 36430; 71045; 80048; 80053; 81001; 83690; 84484; 85025; 86850; 86900; 86901; 86920; 93005; 96374; 96375; 99285; G0378; J1170; J1644; J2405; J3480; J7040; P9016